=== PATIENT | female | born 1935 | race African-American/Black ===

== ENCOUNTER 2019-07-17 12:42 | Emergency (ER) | payer BC ==
[~2019-07-17] VITALS: Ht 167.6 cm; Wt 70.0 kg
[2019-07-17 12:46] VITALS: BP 133/95
== END 2019-07-17 18:18 | disposition home or self-care (01) ==
LOC: ER 12:42
DX: R41.82 Altered mental status, unspecified (principal); E86.0 Dehydration; F03.90 Unspecified dementia, unspecified severity, without behavioral disturbance, psychotic disturbance, mood disturbance, and anxiety; R45.1 Restlessness and agitation; F32.9 Major depressive disorder, single episode, unspecified; K21.9 Gastro-esophageal reflux disease without esophagitis; Z87.440 Personal history of urinary (tract) infections; Z87.09 Personal history of other diseases of the respiratory system; K59.00 Constipation, unspecified
CPT/HCPCS: 99283